=== PATIENT | male | born 1950 | race Caucasian/White ===

== ENCOUNTER 2021-11-10 08:00 | Outpatient (CLI) | payer MEDICARE, OTHER ==
--- NOTE | 2021-11-10 17:08 | XRAY Report ---
PROCEDURE: Chest 2 View X-Ray INDICATIONS: COUGH TECHNIQUE: 2 view(s) of the chest. COMPARISON: None. FINDINGS: Surgical changes and devices: None. Lungs and pleura: No pleural effusions or pneumothorax. Lungs are clear. Mediastinum: Mediastinal contours are normal. Heart size is normal. Bones and chest wall: No suspicious bony abnormalities. Soft tissues appear unremarkable. IMPRESSION: No acute cardiopulmonary process demonstrated radiographically. Reviewed by: Roberto Martinez MD on 11/10/2021 5:07 PM PDT Approved by: Roberto Martinez MD on 11/10/2021 5:07 PM PDT Station ID: [id number]
== END 2021-11-10 23:59 | disposition home or self-care (01) ==
LOC: DI.S 08:00
PROVIDERS: ATTEND Physician Assistant Medical
DX: R05.9 Cough, unspecified (principal)

== ENCOUNTER 2022-02-14 10:46 | Outpatient (CLI) | payer MEDICARE ==
--- NOTE | 2022-02-14 17:18 | CT Report ---
PROCEDURE: CERVICAL SPINE WO INDICATIONS: CERVICAL SPINE FUSION TECHNIQUE: Noncontrast 3 mm thick sections acquired from the skull base to the T4 level. Sagittal and coronal r eformats were then constructed. For radiation dose reduction, the following was used: automated exp osure control, adjustment of mA and/or kV according to patient size. COMPARISON: None. FINDINGS: Image quality: Excellent. Bones: No fractures or dislocations. Visualized superior ribs are intact. Postoperative changes are seen, with anterior fixation hardware at the C6-C7 level. No findings of langston rdware failure or hardware loosening can be seen. Grade 1/2 anterolisthesis is seen at the C6-C7 level. There are remote fracture fragments seen involv ing the right facets and posterior elements of the C6-C7 level, as on series 7 image 46 and on series 6 images 45 through 49. There is a fracture fragment seen deviated medially, with mild central canal narrowing, as on series 4 image 48. Focal degenerative change can also be seen involving the C1-C2 interface anteriorly. Soft tissues: Prevertebral soft tissues are normal in thickness. No paravertebral hematomas. No ap ical pneumothoraces. Atelectatic calcification is seen, particularly involving the left carotid bifu rcation region. IMPRESSION: Intact anterior fixation hardware at C6-C7. Postoperative changes are seen at C6-C7, with grade 1/2 anterolisthesis. Chronic appearing fragments can be seen involving the posterior elements on the right at C6-C7, including a medially deviated fra gment, with mild central canal narrowing. Please correlate with known patient history and any prior outside imaging. Reviewed by: Rupesh Dacosta MD on 02/14/2022 4:16 PM [place] Approved by: Rupesh Dacosta MD on 02/14/2022 4:16 PM [place] Station ID: [id number]
== END 2022-02-14 10:47 | disposition home or self-care (01) ==
LOC: DI 10:46
PROVIDERS: ATTEND Neurological Surgery
DX: Z98.1 Arthrodesis status (principal); M43.12 Spondylolisthesis, cervical region

== ENCOUNTER 2022-03-02 16:50 | Outpatient (CLI) | payer MEDICARE ==
--- NOTE | 2022-03-02 22:09 | MRI Report ---
PROCEDURE: CERVICAL SPINE WO INDICATIONS: C5-C7 LEVEL SPINAL CORD INJURY, SPINE FX TECHNIQUE: Noncontrast sagittal T1 spin echo and T2 fast spin echo, sagittal STIR, foraminal oblique sagittal T2 fast spin echo, and axial gradient echo or T2 fast spin echo through the cervical spine. COMPARISON: CT cervical spine without. FINDINGS: Image quality: Excellent. Alignment and Curvature: There is a 2 anterolisthesis of C6 on C7 Bone Marrow: Marrow demonstrates normal overall signal. Spinal Cord: There is T2 hyperintensity in the cervical cord at level of C6-C7, consistent with myelo swati. No cerebellar tonsillar herniation. Paraspinous Soft Tissues: No paravertebral masses. Prevertebral soft tissues are normal in thicknes s. C2-C3: Preserved disc height and mild disc desiccation. There is diffuse posterior disc bulge. Uncov ertebral hypertrophy, left greater than right. No central canal stenosis. Mild left foraminal stenosi s. C3-C4: Preserved disc height and mild disc desiccation. There is diffuse posterior disc bulge. Unco vertebral hypertrophy. Mild bilateral facet arthropathy. Moderate central canal stenosis. Moderate bi lateral foraminal stenosis. C4-C5: Preserved disc height and mild disc desiccation. There is diffuse posterior disc bulge. Uncov ertebral hypertrophy. Mild bilateral facet arthropathy. Mild central canal stenosis. Moderate bilater al foraminal stenosis. C5-C6: Preserved disc height and mild disc desiccation. There is mild posterior disc bulge. Uncovert ebral hypertrophy, left greater than right. Moderate bilateral facet arthropathy. Moderate central ca nal stenosis. Moderate bilateral foraminal stenosis. C6-C7: Surgically fused. Old right facet fracture and chronic appearing left facet joint subluxation . [id number]-[id number] central canal stenosis. Severe right and moderate left foraminal stenosis. C7-T1: Normal in appearance. IMPRESSION: 1. 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 2. Old right C6-C7 facet fracture and chronic left C6-C7 facet joint subluxation. 3. Surgical fusion at C6-C7. There is grade 2 anterolisthesis of C6 on C7. 4. Multilevel degenerative disc and facet disease in cervical spine 5. [id number] central canal stenosis at C6-C7. 6. Multilevel foraminal stenoses as described. Reviewed by: Nuno Dave MD on 03/02/2022 10:07 PM PST Approved by: Nuno Dave MD on 03/02/2022 10:07 PM PST Station ID: [id number]
== END 2022-03-02 16:51 | disposition home or self-care (01) ==
LOC: DI 16:50
PROVIDERS: ATTEND Neurological Surgery
DX: M50.01 Cervical disc disorder with myelopathy, high cervical region (principal); M48.02 Spinal stenosis, cervical region; G95.9 Disease of spinal cord, unspecified; M47.12 Other spondylosis with myelopathy, cervical region; Z98.1 Arthrodesis status; M24.89 Other specific joint derangement of other specified joint, not elsewhere classified

== ENCOUNTER 2022-09-13 12:37 | Outpatient (CLI) | payer MEDICARE ==
--- NOTE | 2022-09-13 22:01 | MRI Report ---
PROCEDURE: CERVICAL SPINE WO INDICATIONS: SP CERVICAL FUSION TECHNIQUE: Noncontrast sagittal T1 spin echo and T2 fast spin echo, sagittal STIR, foraminal oblique sagittal T2 fast spin echo, and axial gradient echo or T2 fast spin echo through the cervical spine. COMPARISON: 03/02/2022 FINDINGS: Image quality: Excellent. Alignment and Curvature: 8 mm anterolisthesis of C6 on C7, unchanged compared to prior MRI. Bone: Marrow demonstrates normal overall signal. C6-7 ACDF. Spinal Cord: Hyperintense T2-weighted signal in the cervical cord at the level of C6-C7 consistent wi th myelopathy, unchanged compared to prior MRI. No cerebellar tonsillar herniation. Paraspinous Soft Tissues: No paravertebral masses. Prevertebral soft tissues are normal in thicknes s. C2-C3: The disc is desiccated with a diffuse bulge. Left uncovertebral hypertrophy causes mild left foraminal stenosis. The right foramen is patent. The central canal is patent. C3-C4: The disc is desiccated with a diffuse bulge. Bilateral uncovertebral hypertrophy causes mode rate bilateral foraminal stenosis. The central canal has moderate stenosis. C4-C5: The disc is desiccated with a diffuse disc bulge. Bilateral uncovertebral hypertrophy causes moderate bilateral foraminal stenosis. The central canal has mild stenosis. C5-C6: The disc is desiccated. No significant disc bulge. Bilateral uncovertebral hypertrophy causes mild bilateral foraminal stenosis. The central canal has mild stenosis. C6-C7: Postoperative changes of ACDF with grade 2 anterolisthesis measuring 8 mm with facet subluxat ion. Moderate central canal stenosis. C7-T1: The disc is desiccated. No height loss or disc bulge. The central canal is patent. IMPRESSION: 1. Myelopathy at C6-7 presumably secondary to prior cord injury. 2. Multilevel foraminal and central canal stenosis, unchanged compared to the prior study. 3. Overall there is no significant interval change compared to 03/02/2022. Reviewed by: Juan Black on 09/13/2022 9:00 PM [facility] Approved by: Juan Black on 09/13/2022 9:00 PM [facility] Station ID: [id number]
== END 2022-09-13 12:38 | disposition home or self-care (01) ==
LOC: DI 12:37
PROVIDERS: ATTEND Neurological Surgery
DX: Z98.1 Arthrodesis status (principal); G82.50 Quadriplegia, unspecified; S14.105D Unspecified injury at C5 level of cervical spinal cord, subsequent encounter; S14.3XXS Injury of brachial plexus, sequela; G95.9 Disease of spinal cord, unspecified; M48.02 Spinal stenosis, cervical region

== ENCOUNTER 2023-02-19 08:00 | Outpatient (CLI) | payer MEDICARE | END 2023-02-19 08:01 | disposition home or self-care (01) | LOC: LAB.S 08:00 | PROVIDERS: ATTEND Registered Nurse | DX: R05.1 Acute cough (principal); J34.89 Other specified disorders of nose and nasal sinuses; R06.02 Shortness of breath ==

== ENCOUNTER 2023-02-19 08:00 | Outpatient (CLI) | payer MEDICARE ==
--- NOTE | 2023-02-19 15:57 | XRAY Report ---
PROCEDURE: Chest 2 View X-Ray INDICATIONS: ACUTE COUGH TECHNIQUE: 2 views of the chest were acquired. COMPARISON: None. FINDINGS: Surgical changes and devices: None. Lungs and pleura: No pleural effusions or pneumothorax. Lungs are clear. Mediastinum: Mediastinal contours appear normal. Heart size is normal. Bones and chest wall: No suspicious bony lesions. Overlying soft tissues appear unremarkable. IMPRESSION: No acute cardiopulmonary process. Reviewed by: Nuno Dave MD on 02/19/2023 3:56 PM [facility] Approved by: Nuno Dave MD on 02/19/2023 3:56 PM [facility] Station ID: [id number]
== END 2023-02-19 23:59 | disposition home or self-care (01) ==
LOC: DI.S 08:00
PROVIDERS: ATTEND Registered Nurse
DX: R05.1 Acute cough (principal)